=== PATIENT | male | born 1950 | race Two or more races ===

== ENCOUNTER 2017-08-03 10:04 | Emergency (ER) | payer MEDICARE, BC ==
[~2017-08-03] VITALS: Ht 172.7 cm; Wt 74.8 kg
[2017-08-03] MEDS ORDERED: HYDROCODONE/APAP 5-325MG TABLET PO ONE (10:55)
[2017-08-03] MEDS ORDERED: HYDROCODONE/APAP 5-325MG TABLET ONE (11:27)
--- NOTE | 2017-08-03 12:49 | NUR ---
MSE COMPLETED, PT D/C'D HOME ACI/RX X1 COPY OF XRAY XRESULTS GIVEN TO PT . PT AMBULATED W/O DIFF, STATED KNEE PAIN ALOT BETTER. PT TOOK ALL BELONGINGS.
[2017-08-03 12:51] VITALS: BP 122/75
== END 2017-08-03 12:52 | disposition home or self-care (01) ==
LOC: ER 10:05
DX: S83.411A Sprain of medial collateral ligament of right knee, initial encounter (principal); I10 Essential (primary) hypertension; E11.9 Type 2 diabetes mellitus without complications; M19.90 Unspecified osteoarthritis, unspecified site; F17.200 Nicotine dependence, unspecified, uncomplicated; X58.XXXA Exposure to other specified factors, initial encounter; Y93.89 Activity, other specified; Y92.89 Other specified places as the place of occurrence of the external cause; Y99.8 Other external cause status
CPT/HCPCS: 73560; 99284; A4663

== ENCOUNTER 2018-09-24 20:31 | Emergency (ER) | payer MEDICARE, BC ==
[~2018-09-24] VITALS: Ht 172.7 cm; Wt 70.3 kg
--- NOTE | 2018-09-24 20:40 | NUR ---
Pt. ambulated into ED w/ c/o 05/20 periumbilical pain x 3 days, A/Ox4, pt. was seen by his PCP last week for flu like symptoms and was prescribed abx but cannot recall the name, pt. stopped taking abx d/t abd. pain, denies CP/LOPEZ/F/C/N/V, BS active x 4 quads, abd. S/R/ND - tender upon palpation, pt. reports hx. of HTN and DM type 2,
[2018-09-24] MEDS ORDERED: LIDOCAINE VISCUS 2% 15 ML UDC MM ONE (21:00)
[2018-09-24] MEDS ORDERED: MAG HYDROX/AL HYDROX/SIMETH 30 ML LIQUID UDC PO ONE (21:00)
[2018-09-24] MEDS ORDERED: DICYCLOMINE HCL LIQ 10 MG/5 ML UDC PO ONE (21:00)
--- NOTE | 2018-09-24 21:02 | NUR ---
EKG performed and given to Dr. Mahajan,
--- NOTE | 2018-09-24 21:08 | NUR ---
Lab. tech at bedside for specimen draw,
[2018-09-24] MEDS ORDERED: MAGNESIUM HYDROXIDE 30 ML LIQUID UDC ONE (21:14)
[2018-09-24] MEDS ORDERED: DICYCLOMINE HCL LIQ 10 MG/5 ML UDC ONE (21:14)
[2018-09-24] MEDS ORDERED: LIDOCAINE VISCUS 2% 15 ML UDC ONE (21:14)
[2018-09-24 21:16] LABS: BASOPHILS # (AUTO) 0.1 K/uL (0.0-8.0); BASOPHILS % (AUTO) 0.7 % (0.0-2.0); EOSINOPHILS # (AUTO) 0.3 K/uL (0.0-0.7); EOSINOPHILS % (AUTO) 3.4 % (0.0-7.0); HEMATOCRIT 40.1 % (36.7-47.1); HEMOGLOBIN 13.6 g/dL (12.5-16.3); LYMPHOCYTES # (AUTO) 2.7 K/uL (20.0-40.0); LYMPHOCYTES % (AUTO) 32.8 % (20.5-51.5); MEAN CORPUSCULAR HEMOGLOBIN 28.6 uug (23.8-33.4); MEAN CORPUSCULAR HGB CONC 34 g/dL (32.5-36.3); MEAN CORPUSCULAR VOLUME 84.7 fL (73.0-96.2); MONOCYTES # (AUTO) 0.5 K/uL (2.0-10.0); MONOCYTES % (AUTO) 5.5 % (0.0-11.0); NEUTROPHILS # (AUTO) 4.8 K/uL (1.8-8.9); NEUTROPHILS % (AUTO) 57.6 % (38.5-71.5); PLATELET COUNT (AUTO) 210 K/uL (152-348); RED BLOOD CELL COUNT(AUTO) 4.73 MIL/uL (4.06-5.63); WHITE BLOOD COUNT (AUTO) 8.3 K/uL (3.6-10.2)
--- NOTE | 2018-09-24 21:19 | NUR ---
Rad. tech at bedside for CXR, family member at bedside,
[2018-09-24 21:21] LABS: CREATININE 0.9 mg/dL (0.6-1.3); POTASSIUM 3.3 mmol/L (3.5-5.1)
[2018-09-24 21:27] LABS: BILIRUBIN,DIRECT 0.1 mg/dL (0.0-0.2); BILIRUBIN,TOTAL 0.3 mg/dL (0.2-1.0)
[2018-09-24] MEDS ORDERED: HYDROMORPHONE 1 MG/1 ML DISP.SYRIN IM ONE (21:45)
[2018-09-24] MEDS ORDERED: HYDROMORPHONE 1 MG/1 ML DISP.SYRIN ONE (21:50)
--- NOTE | 2018-09-24 21:55 | NUR ---
Patient discharged to home in stable conditon. Written and verbal after care instructions given. Patient verbalizes understanding of instructions. Pt. d/c w/ prescription per MD order, d/c papers signed, all belongings w/ pt., ID band removed, ambulated w/ steady gait off unit, instructed not to drive, left in private vehicle driven by son, MATTHEW,
== END 2018-09-24 21:58 | disposition home or self-care (01) ==
LOC: EDBD 20:32 → ER 20:32
DX: K85.20 Alcohol induced acute pancreatitis without necrosis or infection (principal); E11.9 Type 2 diabetes mellitus without complications; Z87.891 Personal history of nicotine dependence
CPT/HCPCS: 36415; 71045; 80048; 80076; 83690; 84484; 85025; 93005; 96372; 99284; J1170; 70030-TC; A4663

== ENCOUNTER 2019-08-09 00:08 | Emergency (ER) | payer MEDICARE, BC ==
[~2019-08-09] VITALS: Ht 172.7 cm; Wt 71.7 kg
[2019-08-09] MEDS ORDERED: [UNRECOGNIZED DRUG - REMARK] (00:24)
[2019-08-09] MEDS ORDERED: [UNRECOGNIZED DRUG - REMARK] (00:24)
[2019-08-09] MEDS ORDERED: [UNRECOGNIZED DRUG - REMARK] (00:24)
[2019-08-09] MEDS ORDERED: [UNRECOGNIZED DRUG - REMARK] (00:24)
--- NOTE | 2019-08-09 00:58 | NUR ---
Dr. Lara at bedside for MSE
[2019-08-09 01:16] LABS: BASOPHILS # (AUTO) 0.1 K/uL (0.0-8.0); BASOPHILS % (AUTO) 0.9 % (0.0-2.0); EOSINOPHILS # (AUTO) 0.4 K/uL (0.0-0.7); EOSINOPHILS % (AUTO) 6.8 % (0.0-7.0); HEMOGLOBIN 13.1 g/dL (12.5-16.3); LYMPHOCYTES # (AUTO) 1.7 K/uL (20.0-40.0); LYMPHOCYTES % (AUTO) 26.6 % (20.5-51.5); MEAN CORPUSCULAR HEMOGLOBIN 27.8 uug (23.8-33.4); MEAN CORPUSCULAR HGB CONC 34 g/dL (32.5-36.3); MEAN CORPUSCULAR VOLUME 82.5 fL (73.0-96.2); MONOCYTES # (AUTO) 0.5 K/uL (2.0-10.0); MONOCYTES % (AUTO) 8.2 % (0.0-11.0); NEUTROPHILS # (AUTO) 3.6 K/uL (1.8-8.9); NEUTROPHILS % (AUTO) 57.5 % (38.5-71.5); PLATELET COUNT (AUTO) 134 K/uL (152-348); RED BLOOD CELL COUNT(AUTO) 4.73 MIL/uL (4.06-5.63); WHITE BLOOD COUNT (AUTO) 6.3 K/uL (3.6-10.2)
[2019-08-09 01:21] LABS: CREATININE 1.1 mg/dL (0.6-1.3); POTASSIUM 3.4 mmol/L (3.5-5.1)
[2019-08-09] MEDS ORDERED: OSELTAMIVIR PHOSPHATE 75 MG CAPSULE PO ONE (02:00)
[2019-08-09] MEDS ORDERED: OSELTAMIVIR PHOSPHATE 75 MG CAPSULE ONE (02:02)
--- NOTE | 2019-08-09 02:12 | NUR ---
Patient discharged to home in stable conditon. Written and verbal after care instructions given. Patient verbalizes understanding of instructions. Patient ambulating with steady gait
[2019-08-09 02:13] VITALS: BP 131/67
== END 2019-08-09 02:12 | disposition home or self-care (01) ==
LOC: ER 00:17
DX: J09.X2 Influenza due to identified novel influenza A virus with other respiratory manifestations (principal); F17.200 Nicotine dependence, unspecified, uncomplicated; E11.9 Type 2 diabetes mellitus without complications; I10 Essential (primary) hypertension; Z79.899 Other long term (current) drug therapy
CPT/HCPCS: 36415; 70030-TC; 71045; 85025; 87400; 93005; A4663

== ENCOUNTER 2022-07-07 09:03 | Emergency (ER) | payer MEDICARE, BC ==
[~2022-07-07] VITALS: Ht 172.7 cm; Wt 72.6 kg
[~2022-07-07 09:03] MED LIST: [UNRECOGNIZED DRUG - REMARK]; [UNRECOGNIZED DRUG - REMARK]; [UNRECOGNIZED DRUG - REMARK]; [UNRECOGNIZED DRUG - REMARK]
--- NOTE | 2022-07-07 10:30 | NUR ---
called to enter room 4B, no answer
--- NOTE | 2022-07-07 10:40 | NUR ---
called to go to ER bed 4B, no answer
--- NOTE | 2022-07-07 11:15 | NUR ---
Patient came back to ER and was escorted to ER bed 4B, pending MD evaluation.
[2022-07-07] MEDS ORDERED: FAMOTIDINE 20 MG TABLET PO ONE (11:45)
[2022-07-07] MEDS ORDERED: ASPIRIN 81 MG TAB.CHEW PO ONE (11:45)
[2022-07-07] MEDS ORDERED: SUCRALFATE 1 G/10 ML LIQUID UDC GT SCH (11:45)
[2022-07-07 12:05] LABS: HEMATOCRIT 42.5 % (36.7-47.1); MEAN CORPUSCULAR HEMOGLOBIN 29.1 uug (23.8-33.4); MEAN CORPUSCULAR VOLUME 86.9 fL (73.0-96.2); PLATELET COUNT (AUTO) 169 K/uL (152-348)
[2022-07-07 12:13] LABS: CARBON DIOXIDE 29 mmol/L (21-32); CHLORIDE 104 mmol/L (98-107); GLUCOSE 105 mg/dL (74-106); POTASSIUM 3.4 mmol/L (3.5-5.1); UREA NITROGEN, BLOOD 17 mg/dL (7-18)
[2022-07-07 12:18] LABS: BILIRUBIN,DIRECT 0.1 mg/dL (0.0-0.2); BILIRUBIN,TOTAL 0.2 mg/dL (0.2-1.0); TOTAL PROTEIN, SERUM 7.3 g/dL (6.4-8.2)
[2022-07-07] MEDS ORDERED: SUCRALFATE 1 G/10 ML LIQUID UDC ONE (12:29)
[2022-07-07] MEDS ORDERED: ASPIRIN 81 MG TAB.CHEW ONE (12:30)
[2022-07-07] MEDS ORDERED: FAMOTIDINE 20 MG TABLET ONE ×2 (12:30)
--- NOTE | 2022-07-07 12:44 | NUR ---
Pt refused Aspirin 81mg x 2 tabs and IV saline lock. made aware.
--- NOTE | 2022-07-07 14:00 | NUR ---
Robert gomez MD notified.
--- NOTE | 2022-07-07 14:10 | NUR ---
Pt came back, notified.
[2022-07-07] MEDS ORDERED: SUCR1ORA PO (14:12)
[2022-07-07] MEDS ORDERED: FAMO-132 PO (14:12)
--- NOTE | 2022-07-07 14:22 | NUR ---
Patient discharged to home in stable condition. Written and verbal after care instructions given. Patient verbalizes understanding of instructions. Stressed follow up or return to ER for worsening s/s.
[2022-07-07 14:47] VITALS: BP 118/76
== END 2022-07-07 14:20 | disposition home or self-care (01) ==
LOC: ER 09:03
DX: R10.13 Epigastric pain (principal); E11.9 Type 2 diabetes mellitus without complications; I10 Essential (primary) hypertension; Z87.891 Personal history of nicotine dependence; E87.6 Hypokalemia; R94.31 Abnormal electrocardiogram [ECG] [EKG]
CPT/HCPCS: 36415; 71045; 83690; 84484; 85025; 85610; 93005; A4663